=== PATIENT | male | born 1990 | race African-American/Black ===

== ENCOUNTER 2017-06-02 12:03 | Emergency (ER) | payer SELFPAY ==
[~2017-06-02] VITALS: Ht 182.9 cm; Wt 73.0 kg
[2017-06-02] MEDS ORDERED: METRONIDAZOLE 500MG TABLET PO ONE (13:00)
[2017-06-02] MEDS ORDERED: IBUPROFEN 600MG TABLET PO ONE (13:00)
[2017-06-02] MEDS ORDERED: ACETAMINOPHEN 500MG TABLET PO ONE (13:00)
[2017-06-02 13:27] VITALS: BP 117/65
== END 2017-06-02 13:33 | disposition home or self-care (01) ==
LOC: ER 12:30
DX: K02.9 Dental caries, unspecified (principal); M54.6 Pain in thoracic spine; Z20.2 Contact with and (suspected) exposure to infections with a predominantly sexual mode of transmission
CPT/HCPCS: 99284